=== PATIENT | female | born 2005 | race Caucasian/White ===

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

== ENCOUNTER 2024-01-01 15:46 | Emergency (ER) | payer OTHER, SELFPAY ==
[2024-01-01 15:55] VITALS: BP 104/66; PULSE 112; RESP 18; TEMP 37.1; O2SAT 100
--- NOTE | 2024-01-01 15:57 | ED.GENADULT ---
HPI - General Adult General Chief complaint: Upper Respiratory Infection Stated complaint: Congestion,Cough Time Seen by Provider: 01/01/24 15:57 Source: patient Mode of arrival: ambulatory Limitations: no limitations History of Present Illness HPI narrative: 18-year-old female patient presents to the [facility] with complaints of cold symptoms for the past 2-3 days. Patient states she has had fevers as high as 100, congestion a mild cough runny nose and just overall not feeling well. Patient does vape. Patient denies getting a flu shot this year. Related Data Home Medications Medication Instructions Recorded Confirmed lamotrigine 25 mg tablet mg 01/01/24 lumateperone 10.5 mg capsule mg PO 01/01/24 (Caplyta) Allergies Allergy/AdvReac Type Severity Reaction Status Date / Time No Known Allergies Allergy Verified 01/01/24 15:59 Review of Systems Review of Systems: CONSTITUTIONAL: Positive fever, body aches and chills, or sweats. EYES: Denies visual changes, redness, or discharge. ENT: positive rhinorrhea, congestion, denies sore throat, or otalgia. CARDIOVASCULAR: Denies chest pain, palpitations, or edema. RESPIRATORY: positive mild cough , denies dyspnea. GASTROINTESTINAL: Denies abdominal pain, nausea, vomiting, or diarrhea. GENITOURINARY: Denies dysuria or hematuria. SKIN: Denies rash or itching. MUSCULOSKELETAL: Denies back pain, joint pain, or myalgia. NEUROLOGIC: Denies headache, numbness, or weakness. PSYCHIATRIC: Denies anxiety or depression. [facility] Past Medical History Medical History Anxiety and depression Comments At the time of my signature I agree with nursing past medical history, surgical, social, and family history. There is no relevant family history pertinent to the presenting complaint. Exam Narrative: GENERAL: Well-appearing, well-nourished, and in no acute distress. HEAD: Normocephalic, atraumatic. EYES: PERRLA and EOMI. ENT: Nares with erythema edema noted bilaterally, no rhinorrhea or epistaxis. Mucous membranes moist. posterior pharynx with slight postnasal drip but no tonsillar enlargement, no erythema. Bilateral TMs are clear no erythema or foreign bodies canal. NECK: Supple. No lymphadenopathy CHEST: Clear to auscultation. No respiratory distress. Patient able talk in clear complete sentences. HEART: Regular rate and rhythm. No murmur heard. Normal peripheral pulses. ABDOMEN: Soft, nontender, nondistended, normal active bowel sounds. EXTREMITIES: Normal range of motion. No edema. SKIN: Warm, dry, no rash. NEURO: No focal deficits. Alert and oriented x3. Course Course Level of Care: Express Care Visit Vital Signs Vital signs: Vital Signs Temperature 37.1 C 01/01/24 15:55 Pulse Rate 112 H 01/01/24 15:55 Respiratory Rate 18 01/01/24 15:55 Blood Pressure 104/66 01/01/24 15:55 Pulse Oximetry 100 01/01/24 15:55 Oxygen Delivery Room Air 01/01/24 15:55 Temperature 37.1 C 01/01/24 15:55 Pulse Rate 112 H 01/01/24 15:55 Respiratory Rate 18 01/01/24 15:55 Blood Pressure 104/66 01/01/24 15:55 Pulse Oximetry 100 01/01/24 15:55 Oxygen Delivery Room Air 01/01/24 15:55 Vital signs reviewed. Medical Decision Making MDM Narrative Medical decision making narrative: discussed with patient that her influenza COVID test both came back negative. Discussed with patient she most likely does have a viral syndrome and given that it has only been 3 days she can expect this to last anywhere from 5-10 days. Discussed with patient if her symptoms worsen including worsening shortness of breath, chest pain coughing or fevers last longer than 5 days and she needs to be seen by her primary doctor she can come back here for re-evaluation. Patient verbalized understanding denies any other questions or concerns at this time. Differential Diagnosis Differential Diagnosis: Diff
== END 2024-01-01 16:29 | disposition home or self-care (01) ==
PROVIDERS: Emergency Provider Nurse Practitioner Family; PCP Pediatrics
DX: J06.9 Acute upper respiratory infection, unspecified (principal); F17.290 Nicotine dependence, other tobacco product, uncomplicated
CPT/HCPCS: 87804; 99213; G0463

== ENCOUNTER 2024-04-21 09:13 | Emergency (ER) | payer OTHER, SELFPAY ==
--- NOTE | 2024-04-21 09:22 | ED.GENADULT ---
HPI - General Adult General Chief complaint: Unspecified Stated complaint: consussion? Source: patient Mode of arrival: ambulatory Limitations: no limitations History of Present Illness HPI narrative: 19 y/o female presented for c/o headache due to head injury sustained yesterday. States she was outside jogging when she tripped in a parking lot and struck her face on the concrete. Endorses large knot to right forehead, mild nausea, light sensitivity. Denies LOC, denies neck pain, vomiting, dizziness, numbness, tingling, confusion, or lethargy. Related Data Home Medications Medication Instructions Recorded Confirmed No Home Medications 04/21/24 04/21/24 Allergies Allergy/AdvReac Type Severity Reaction Status Date / Time No Known Allergies Allergy Verified 04/21/24 09:23 Review of Systems Review of Systems: CONSTITUTIONAL: Denies body aches, fever, chills, or sweats. EYES: Denies visual changes, redness, or discharge. ENT: Denies rhinorrhea, congestion, epistaxis CARDIOVASCULAR: Denies chest pain, palpitations, or edema. RESPIRATORY: Denies cough or dyspnea. GASTROINTESTINAL: Reports nausea Denies abdominal pain, vomiting, or diarrhea. SKIN: Denies rash, itching, or wounds. MUSCULOSKELETAL: Denies back pain, joint pain, or myalgia. NEUROLOGIC: headache, light sensitivityDenies numbness, tingling, or weakness. All systems reviewed & are unremarkable except as noted in HPI and below PMFSH Past Medical History Medical History Anxiety and depression Comments At time of signature, I have reviewed and agree with nursing past medical, surgical, social and family history unless otherwise noted. Please see nursing chart for further information. There is no relevant family history pertinent to the presenting complaint Exam Narrative: GENERAL: Well-appearing HEAD: Right forehead with raised contusion approx 5cm diameter with superficial abrasions at center, no visible debris/fb; superficial abrasion to nose <0.5cm diameter; scattered bruising to both arms, no abrasions to hands. EYES: EOMI. PERRLA, No redness or drainage. Conjunctivae normal. ENT: Mucous membranes pink and moist. No rhinorrhea or epistaxis. TMs normal bilaterally. Throat normal. Uvula midline. NECK: Normal AROM. Supple. no VPT. CHEST: No respiratory distress. Clear to auscultation. HEART: Regular rate and rhythm. No murmur appreciated. Normal peripheral pulses. MUSCULOSKELETAL: No bony tenderness. EXTREMITIES: Normal range of motion SKIN: Warm, dry. Capillary refill normal. Normal skin turgor. NEURO: No focal deficits. Alert and oriented x3. Gait steady. PSYCH: Normal affect. Course Course Emergency Course: Patient is aware of diagnosis, understands and agrees to treatment plan. Anticipatory guidance given. Patient agrees to follow-up as directed and is aware of reasons to seek care at the emergency department. Portions of this record may have been created with voice recognition software Level of Care: Express Care Visit Medical Decision Making MDM Narrative Medical decision making narrative: Discussed physical exam findings. There are no focal deficits on exam. Subarachnoid hemorrhage is felt to be unlikely at this time. Advised supportive measures and signs/symptoms to go to the ER at length. Discussed concussion vs bleeding in brain and indications for imaging. Pt is appropriate for outpt treatment and f/u. Differential Diagnosis Differential Diagnosis: Migraine, tension-type headache, cluster headache, concussion, seizure, meningitis, encephalitis, neurosyphilis, SAH, subdural hematoma, brain tumor, hypertensive encephalopathy, and drug toxicity? Vital Signs Vital Signs: reviewed Discharge Plan Discharge Clinical Impression: Abrasion of forehead Patient Disposition: Home, Self-Care Condition: Stable Instructions: Antibiotic Form, Concussion (ED) Add
[2024-04-21 09:23] VITALS: BP 135/93; PULSE 119; RESP 18; TEMP 36.3; O2SAT 100
== END 2024-04-21 09:39 | disposition home or self-care (01) ==
PROVIDERS: Emergency Provider Nurse Practitioner Family; PCP Pediatrics
DX: S00.81XA Abrasion of other part of head, initial encounter (principal); W01.0XXA Fall on same level from slipping, tripping and stumbling without subsequent striking against object, initial encounter; Y93.02 Activity, running
CPT/HCPCS: 99213; G0463